=== PATIENT | female | born 1990 | race Two or more races ===

== ENCOUNTER 2024-05-20 18:09 | Emergency (ER) | payer MEDICAID, SELFPAY ==
[2024-05-20 18:30] VITALS: BP 147/87; PULSE 65; RESP 16; TEMP 37.1; O2SAT 99; BMI 29.9
--- NOTE | 2024-05-20 18:31 | PD.EDRME ---
Rapid Medical Screening Exam RME Arrival date/time: 05/20/24 18:09 34 year old female present to ED for c/o of abd pain for 1 day I have greeted and performed a focused initial assessment of this patient. A comprehensive ED assessment and evaluation of the patient, analysis of all test results, and completion of the medical decision making process will be conducted by additional ED providers. Chief Complaint: Abdominal Pain Time Seen by Provider: 05/20/24 18:29 Vital signs: Vital Signs Temperature 98.8 F 05/20/24 18:30 Pulse Rate 65 05/20/24 18:30 Respiratory Rate 16 05/20/24 18:30 Blood Pressure 147/87 H 05/20/24 18:30 Pulse Oximetry (%) 99 05/20/24 18:30 Oxygen Delivery Method Room Air 05/20/24 18:30
[2024-05-20 18:57] LABS: Collection Type, Urine Voided
[2024-05-20 19:10] LABS: Bacteria,Urine Rare; Bilirubin,Urine 1+ (Negative); Blood,Urine Negative (Negative); Clarity,Urine Turbid (Clear/Hazy); Color,Urine Yellow (Lt Yel-Yel); Glucose, Urine Negative (Negative); Ketones,Urine 2+ (Negative); Leukocyte Esterase,Urine Negative (Negative); Nitrite,Urine Negative (Negative); Protein,Urine 1+ (Neg - Trace); RBC,Urine 7 /hpf (0-3); Specific Gravity,Urine 1.033 (1.001-1.035); Squamous Epithelial Cell,Urine 13 /hpf (0-5); WBC,Urine 5 /hpf (0-5)
[2024-05-20 19:40] LABS: HCG,Qualitative Serum Negative
[2024-05-20 19:41] LABS: Basophils % (Auto) 0 % (0-2.5); Eosinophils % (Auto) 0 % (0-10); Hematocrit 39.2 % (36.0-46.0); Hemoglobin 13.1 g/dL (12.0-16.0); Immature Granulocytes % (Auto) 0 % (0-0); Immature Granulocytes Auto 0.02 Thou/mm3 (0.00-0.00); Lymphocytes # (Auto) 1.5 Thou/mm3 (1.0-4.8); Lymphocytes % (Auto) 15 % (10-50); Mean Corpuscular HGB Conc 33.4 g/dl (31.0-37.0); Mean Corpuscular Hemoglobin 27.3 pg (25.0-35.0); Mean Corpuscular Volume 82 fL (80-100); Monocytes # (Auto) 0.4 Thou/mm3 (0.0-0.8); Monocytes % (Auto) 4 % (0-12); Neutrophils % (Auto) 80 % (37-80); Nucleated Red Blood Cell % 0 /100 WBC (0); Platelet Count 375 Thou/mm3 (140-440); RDW Standard Deviation 44.1 fL (36.4-46.3); White Blood Count 9.9 Thou/mm3 (3.6-11.0)
[2024-05-20 19:47] LABS: Alanine Aminotransferase 71 U/L (10-49); Albumin, Serum 4.3 gm/dL (3.5-5.0); Albumin/Globulin Ratio 1.3 (1.2-2.2); Alkaline Phosphatase 93 U/L (46-116); Anion Gap 10 (7-16); Aspartate Amino Transferase 84 U/L (0-34); BUN/Creatinine Ratio 7 Ratio (12-20); Bilirubin,Total 1.7 mg/dL (0.3-1.2); Blood Urea Nitrogen 5 mg/dL (9-23); Calcium 9.5 mg/dL (8.3-10.6); Calcium (Corrected) 9.5 mg/dL (8.5-10.1); Carbon Dioxide 23.8 mMol/L (20.0-31.0); Chloride 103 mMol/L (98-107); Creatinine (Component) 0.7 mg/dL (0.6-1.3); Estimated Creatinine Clearance 111.1 mL/min (>60); Globulin 3.3 gm/dL (2.3-3.5); Glucose 79 mg/dL (74-106); Lipase 41 U/L (12-53); Osmolality,Calculated 270 (275-295); Sodium 137 mMol/L (136-145); Total Protein 7.6 gm/dL (5.7-8.2); eGFR > 60 See Note
--- NOTE | 2024-05-20 19:57 | XR_ITS ---
Examination: Abdomen sonogram, Limited Date and time of exam: May 20, 2024 2135 hrs. Indications: Onset right upper abdominal pain today Technique: Real-time juarez scale transabdominal sonographic images of the upper abdomen obtained. Findings: Multiple gallstones Normal gallbladder wall Normal common bile duct 0.3 cm Pancreatic head 2.4 cm Liver 12.4 cm fatty infiltration no focal liver lesions Normal hepatopedal portal venous flow Patent IVC Impression: Cholelithiasis, negative for cholecystitis
[2024-05-20] MEDS: MG HYD/AL HYD/SIME (Maalox Reg) SUSP 30 ML UDC PO (20:01)
--- NOTE | 2024-05-20 23:11 | PD.EDABDPN ---
ED Abdominal Pain RME/HPI General Chief Complaint: Abdominal Pain Stated complaint: sent by clinic upper ab pain Time seen by provider: 05/20/24 18:29 Arrival date/time: 05/20/24 18:09 34-year-old female with no significant past medical history presents emergency department complaining of epigastric abdominal pain has been ongoing for 1 day. Patient denies any fever, chills, nausea vomiting, or any other associated symptom. Source: patient Mode of arrival: ambulatory Limitations: no limitations RME / HPI RME / HPI narrative: 05/20/24 18:09 34 year old female present to ED for c/o of abd pain for 1 day I have greeted and performed a focused initial assessment of this patient. A comprehensive ED assessment and evaluation of the patient, analysis of all test results, and completion of the medical decision making process will be conducted by additional ED providers. Related Data Home Medications ?Medication ?Instructions ?Recorded ?Confirmed vit no.95-ferrous 1 tab PO QDAY 10/18/17 10/23/17 fumarate 28 mg-folic acid 800 mcg tablet () Previous Rx's ?Medication ?Instructions ?Recorded hydrocodone 5 mg-acetaminophen 325 1 tab PO BID PRN pain #10 tabs 05/20/24 mg tablet Allergies Allergy/AdvReac Type Severity Reaction Status Date / Time No Known Drug Allergies Allergy Verified 05/20/24 18:10 Review of Systems Review of Systems Systems Reviewed: All systems reviewed, normal except as documented Constitutional Constitutional: Reports system reviewed and no additional complaints, except as documented, Denies body ache(s), Denies chills and Denies fever(s) Eyes Eyes: Reports system reviewed and no additional complaints, except as documented and Denies change in vision ENT Ears, Nose, Mouth, and Throat: Reports system reviewed and no additional complaints, except as documented, Denies disequilibrium, Denies dizziness, Denies sore throat and Denies vertigo Cardiovascular Cardiovascular: Reports system reviewed and no additional complaints, except as documented, Denies chest pain and Denies dyspnea Respiratory Respiratory: Reports system reviewed and no additional complaints, except as documented, Denies chest congestion, Denies cough and Denies dyspnea Gastrointestinal Gastrointestinal: Reports system reviewed and no additional complaints, except as documented, Reports abdominal pain, Denies nausea and Denies vomiting Musculoskeletal Musculoskeletal: Reports system reviewed and no additional complaints, except as documented, Denies abnormal gait and Denies arthralgias Integumentary/Breasts Skin/Breast: Reports system reviewed and no additional complaints, except as documented, Denies erythema, Denies rash and Denies wounds Neurologic Neurologic: Reports system reviewed and no additional complaints, except as documented, Denies abnormal gait, Denies disequilibrium, Denies dizziness and Denies vertigo Past Medical History Past Medical History NEUROLOGIC: Negative Neurological Disorders or Seizures CARDIAC: Negative Cardiac Disorders or Congestive Heart Failure RESPIRATORY: Negative Chronic Obstructive Pulmonary Disease (COPD) GASTROINTESTINAL: Negative Gastrointestinal Disorders, Hepatitis or Colorectal Cancer GENITOURINARY: Negative Genitourinary Disorders, Renal Disease or Prostate Cancer REPRODUCTIVE: Positive Previous Pregnancies (x4 including 1 sab); Negative Breast Cancer or Testicular Cancer MUSCULOSKELETAL: Negative Musculoskeletal Disorders or Bone Cancer ENDOCRINE: Negative Endocrine Disorders, Diabetes Mellitus Type 1 or Diabetes Mellitus Type 2 HEMATOLOGIC: Negative Blood Disorders OTHER HISTORY: Positive Hospitalization (childbirth); Negative Autoimmune Disease, Down Syndrome, Developmental Delay, Shingles, Falls, Blood Transfusions, Blood Transfusion Reaction, Anesthesia Reactions, Organ Transplant, Chemotherapy, Radiation Therapy, Hyperbaric Therapy, MRSA, VRSA, Vancomycin-Resistant Enterococci, Human Immunodeficiency Virus (HIV), Chicken Pox, Measles, Mumps, Rubella (Bul[place]ian Measles), Pertussis, Clostridium Difficile, Breast Cancer, Cervical Cancer, Colorectal Cancer, Lung Cancer, Ovarian Cancer, Prostate Cancer or Testicular Cancer Family History FAMILY HISTORY: Negative Family Psychiatric Problems, Family Respiratory Disorders, Family Cardiac Disorders, Family Gastrointestinal Problems, Family Cancer, Family Surgery or Family Anesthesia Reaction Surgical History SURGICAL: Positive Section (x3 2009, 2012, 2013); Negative Cardiac Surgery, Endocrine Surgery, Ear Surgery, Abdominal Surgery, Nephrectomy, Joint Replacement, Neurologic Surgery or Organ Transplant Social History SMOKING STATUS: Never smoker SECOND HAND EXPOSURE: No ED Exam General Limitations: Present no limitations General appearance: Present alert and in no apparent distress Head Head exam: Present atraumatic Eye Eye exam: Present normal appearance, PERRL and EOMI ENT ENT exam: Present normal exam, normal oropharynx and mucous membranes moist Neck Neck exam: Present normal inspection, full ROM and trachea midline Chest Chest inspection: Present normal inspection and symmetric chest wall rise Respiratory Respiratory exam: Present normal lung sounds bilaterally Cardiovascular Cardiovascular exam: Present regular rate, normal rhythm and normal heart sounds Abdominal Exam Abdominal exam: Present soft, tenderness, normal bowel sounds and Verduzco's sign; Absent tenderness at McBurney's Point Abdominal tenderness: Present epigastrium Extremities Exam Extremities exam: Present normal inspection and full ROM Back Exam Back exam: Present normal inspection and full ROM Neurological Exam Neurological exam: Present alert, oriented X3 and CN II-XII intact Psychiatric Psychiatric exam: Present normal affect and normal mood Skin Skin exam: Present warm, dry, intact and normal color Course Quality Measures none Orders Category Date Time Status US abdomen limited Stat Exams 05/20/24 19:57 Completed CBC Stat Lab 05/20/24 18:56 Completed CMP [Comprehensive Metabolic Panel] Stat Lab 05/20/24 18:56 Completed HCG,Qualitative Serum Stat Lab 05/20/24 18:56 Completed Lipase Stat Lab 05/20/24 18:56 Completed UA [Urinalysis] Stat Lab 05/20/24 18:44 Completed Urine Culture Stat Lab 05/20/24 18:44 Received mg Hyd/Al Hyd/Cece Susp [Maalox Susp] Med 05/20/24 19:43 Discontinued 30 ml PO X1 ONE Vital Signs Vital signs: Vital Signs Temperature 98.8 F 05/20/24 18:30 Pulse Rate 65 05/20/24 18:30 Respiratory Rate 16 05/20/24 18:30 Blood Pressure 147/87 H 05/20/24 18:30 Pulse Oximetry (%) 99 05/20/24 18:30 Oxygen Delivery Method Room Air 05/20/24 18:30 99% room air within normal limits. Abdominal Pain MDM MDM Narrative MDM Narrative:: 34-year-old female with no significant past medical history presents emergency department complaining of epigastric abdominal pain has been ongoing for 1 day. Patient denies any fever, chills, nausea vomiting, or any other associated symptom. CBC was unremarkable for any leukocytosis. CMP was unremarkable other than elevated total bili, AST, and ALT. Ultrasound findings: Findings: Multiple gallstones Normal gallbladder wall Normal common bile duct 0.3 cm Pancreatic head 2.4 cm Liver 12.4 cm fatty infiltration no focal liver lesions Normal hepatopedal portal venous flow Patent IVC Impression: Cholelithiasis, negative for cholecystitis Patient appears nontoxic and hemodynamically stable. On exam patient does not appear jaundiced. Patient discharged on pain medication and instructed to have close follow-up with primary care provider and request referral to general surgeon if symptoms persist. Instructed to immediately return to emergency department for any worsening symptoms or as needed. Patient data External records reviewed:: [facility] previous records Clinical information provided by:: patient Social determinants that could affect healthcare access:: none Patient has the following chronic illnesses:: See chart How is presenting disease/condition affected by chronic disease/condition?: uneffected by Evaluation data The following diagnostics were reviewed and interpreted by me:: lab results and radiology exam(s) Lab and/or radiology exams considered but not ordered:: Ordered Interpretation Summary: Interpreted by me Medications / Prescriptions Medications or Prescriptions considered but not ordered:: Ordered Medication administrations:: Medication Administration History Discontinued Medications Al Hydrox/Mg Hydrox/Simethicone (Mg Hyd/Al Hyd/Cece (Maalox Reg) Susp 30 Ml Udc) 30 ml PO X1 ONE Stop: 05/20/24 19:44 Last Admin: 05/20/24 20:01 Dose: 30 ml Documented By: Given Consultations Consultation(s) initiated? (list below): No Diagnosis Differential diagnosis abdominal pain: abdominal pain, acute appendicitis, diverticulitis, pancreatitis and small bowel obstruction Most likely diagnosis given after review of the tests above:: Gallstones Admission Indicated Admission indicated?: not indicated Admission Request Was there a request for admission?: No Disposition Plan Disposition Plan: Discharge Discharge Attestation Discharge Attestation: The patient and all family members were given an opportunity to ask questions and understood the discharge instructions. Discharge instructions specifically effects, indications for sooner follow up or return to the emergency department, and the expected course of current diagnosis. Patient condition: Stable Discharge Plan Plan Patient Disposition: HOME (Self Care) Disposition Comment: Stable Prescriptions/Referrals Prescriptions/Med Rec: New hydrocodone-acetaminophen 5-325 mg tablet 1 tab PO BID MDD 2 tabs PRN (Reason: pain) Qty: 10 0RF No Action PNV cmb#95-ferrous fumarate-FA [] 28 mg iron- 800 mcg Tablet 1 tab PO QDAY Referrals: Herman Urbina MD [Primary Care Provider] - In 1 week Problem List Clinical Impression: Gallstones Patient/Caregiver Discharge Instructions Discharge Activity: activity as tolerated Education Materials: What Are Gallstones, Treating Gallstones, ED Gallstones with Biliary Colic Additional Instructions: Take medication as prescribed. Follow-up with primary care provider and request referral to general surgeon if symptoms persist. Return to the emergency department for any worsening symptoms or as needed. Print Language: Urdu Stand Alone Forms: [employer] Award Info., Work/School Release, Patient Portal Info Letter PA/SKILLS INSTRUCTOR Supervising Physician PA/SKILLS INSTRUCTOR Supervising Physician: Dr. Ferguson
== END 2024-05-21 00:02 | disposition home or self-care (01) ==
PROVIDERS: Physician Assistant; Emergency Provider Emergency Medicine; PCP Family Medicine
DX: K80.20 Calculus of gallbladder without cholecystitis without obstruction (principal)
CPT/HCPCS: 36415; 76705; 80053; 81001; 83690; 84703; 85025; 87086; 99284; A9270

== ENCOUNTER 2024-07-14 01:44 | Emergency (ER) | payer MEDICAID, SELFPAY ==
[2024-07-14 01:45] VITALS: BMI 32.3
[2024-07-14 02:15] VITALS: BP 143/80; PULSE 79; RESP 20; TEMP 36.9; O2SAT 100
--- NOTE | 2024-07-14 02:19 | XR_ITS ---
Examination: Abdomen sonogram, Limited Date and time of exam: July 14, 2024 0330 hrs. Indications: Right upper abdominal pain today, diagnosis cholelithiasis one year ago Technique: Real-time juarez scale transabdominal sonographic images of the upper abdomen obtained. Findings: Multiple tiny gallstones Gallbladder wall 0.2 cm Abnormal enlargement, bile duct 0.8 cm although no definite stones Pancreatic head 2.6 cm Liver 14.6 cm smooth contour no focal liver lesions Normal hepatopedal portal venous flow Patent IVC Impression: Cholelithiasis, multiple tiny gallstones Abnormally enlarged common bile duct 0.8 cm, consider MRCP follow-up to exclude small stones in this enlarged common bile duct
--- NOTE | 2024-07-14 02:24 | PD.EDRME ---
Rapid Medical Screening Exam RME Arrival date/time: 07/14/24 01:44 34 year old female present to Ed for c/o RUQ pain, hx of gallstone I have greeted and performed a focused initial assessment of this patient. A comprehensive ED assessment and evaluation of the patient, analysis of all test results, and completion of the medical decision making process will be conducted by additional ED providers. Chief Complaint: Abdominal Pain Time Seen by Provider: 07/14/24 01:47 Vital signs: Vital Signs Temperature 98.4 F 07/14/24 02:15 Pulse Rate 79 07/14/24 02:15 Respiratory Rate 20 07/14/24 02:15 Blood Pressure 143/80 H 07/14/24 02:15 Pulse Oximetry (%) 100 07/14/24 02:15 Oxygen Delivery Method Room Air 07/14/24 02:15
[2024-07-14] MEDS: KETOROLAC INJ 60 MG/2 ML VIAL 30 MG IM (02:28)
[2024-07-14 02:38] LABS: Basophils % (Auto) 0 % (0-2.5); Eosinophils % (Auto) 0 % (0-10); Hematocrit 35.6 % (36.0-46.0); Hemoglobin 12.1 g/dL (12.0-16.0); Immature Granulocytes % (Auto) 0 % (0-0); Immature Granulocytes Auto 0.04 Thou/mm3 (0.00-0.00); Lymphocytes # (Auto) 2.6 Thou/mm3 (1.0-4.8); Lymphocytes % (Auto) 19 % (10-50); Mean Corpuscular Hemoglobin 28.6 pg (25.0-35.0); Mean Corpuscular Volume 84 fL (80-100); Monocytes # (Auto) 0.8 Thou/mm3 (0.0-0.8); Monocytes % (Auto) 6 % (0-12); Neutrophils # (Auto) 9.8 Thou/mm3 (1.8-7.7); Neutrophils % (Auto) 74 % (37-80); Nucleated Red Blood Cell % 0 /100 WBC (0); Platelet Count 366 Thou/mm3 (140-440); Red Blood Count 4.23 Miln/mm3 (4.00-5.20); White Blood Count 13.2 Thou/mm3 (3.6-11.0)
[2024-07-14 02:58] LABS: Alanine Aminotransferase 53 U/L (10-49); Albumin, Serum 4.4 gm/dL (3.5-5.0); Albumin/Globulin Ratio 1.5 (1.2-2.2); Alkaline Phosphatase 84 U/L (46-116); Anion Gap 9 (7-16); Aspartate Amino Transferase 128 U/L (0-34); BUN/Creatinine Ratio 13 Ratio (12-20); Bilirubin,Total 0.7 mg/dL (0.3-1.2); Blood Urea Nitrogen 9 mg/dL (9-23); Calcium 9.3 mg/dL (8.3-10.6); Calcium (Corrected) 9.3 mg/dL (8.5-10.1); Carbon Dioxide 26.5 mMol/L (20.0-31.0); Chloride 106 mMol/L (98-107); Creatinine (Component) 0.7 mg/dL (0.6-1.3); Estimated Creatinine Clearance 98.2 mL/min (>60); Glucose 108 mg/dL (74-106); HCG,Qualitative Serum Negative; Lipase 55 U/L (12-53); Osmolality,Calculated 280 (275-295); Potassium 3.6 mMol/L (3.4-5.1); Sodium 141 mMol/L (136-145); Total Protein 7.4 gm/dL (5.7-8.2); eGFR > 60 See Note
[2024-07-14 04:45] VITALS: BP 132/87; PULSE 63; RESP 18; TEMP 36.3; O2SAT 100
[2024-07-14 05:14] LABS: Collection Type, Urine Voided; RBC,Urine 0 /hpf (0-3); WBC,Urine 0 /hpf (0-5)
[2024-07-14 05:19] LABS: Bacteria,Urine Rare; Bilirubin,Urine Negative (Negative); Blood,Urine Negative (Negative); Clarity,Urine Turbid (Clear/Hazy); Color,Urine Yellow (Lt Yel-Yel); Glucose, Urine Negative (Negative); Ketones,Urine Negative (Negative); Leukocyte Esterase,Urine Negative (Negative); Nitrite,Urine Negative (Negative); Protein,Urine 1+ (Neg - Trace); Specific Gravity,Urine 1.031 (1.001-1.035); Squamous Epithelial Cell,Urine 3 /hpf (0-5)
[2024-07-14 05:55] VITALS: BP 136/88; PULSE 61; RESP 17; TEMP 36.6; O2SAT 100
--- NOTE | 2024-07-14 06:07 | PC.NURSE ---
patient came in today for right upper abdominal pain that started around midnight patient states pain was 10/10
[2024-07-14] MEDS: SODIUM CHLORIDE 0.9% 1000 ML 1,000 ML 125 ML IV (06:41)
[2024-07-14] MEDS: MORPHINE SULF INJ 10 MG/ML VIAL 4 MG IVP (07:05)
[2024-07-14] MEDS: ONDANSETRON INJ 2 MG/ML INJ 2 ML 4 MG IV (07:05)
--- NOTE | 2024-07-14 07:08 | EDNOTE_ITS ---
ED Abdominal Pain RME/HPI General Chief Complaint: Abdominal Pain Stated complaint: RIGHT UPPER ABD PAIN Time seen by provider: 07/14/24 01:47 Arrival date/time: 07/14/24 01:44 RME / HPI RME / HPI narrative: 07/14/24 01:44 34 year old female present to Ed for c/o RUQ pain, hx of gallstone I have greeted and performed a focused initial assessment of this patient. A comprehensive ED assessment and evaluation of the patient, analysis of all test results, and completion of the medical decision making process will be conducted by additional ED providers. DR. SOFIA ISSA ED EVALUATION: 34 year old female presents to the Emergency Department with complaint of right upper quadrant abdominal pain since midnight today. Pain is described as aching and rated mild to moderate in severity. No modifying factors or radiation reported at this time. Patient denies any fevers, chills, nausea, vomiting, diarrhea, dysuria, or any other symptoms at this time. PMHx: Gallstones. section (10/23/17). Social Hx: No tobacco, alcohol, or substance use. Related Data Home Medications ?Medication ?Instructions ?Recorded ?Confirmed vit no.95-ferrous 1 tab PO QDAY 10/18/17 10/23/17 fumarate 28 mg-folic acid 800 mcg tablet () Previous Rx's ?Medication ?Instructions ?Recorded hydrocodone 5 mg-acetaminophen 325 1 tab PO BID PRN pain #10 tabs 05/20/ mg tablet Allergies Allergy/AdvReac Type Severity Reaction Status Date / Time No Known Drug Allergies Allergy Verified 07/14/24 01:47 Review of Systems Review of Systems Systems Reviewed: All systems reviewed, normal except as documented Narrative Review of Systems: GEN: No fever, no chills, no weight loss EYES: No discharge, no visual changes, no pain HEENT: No ear pain, no congestion, no sore throat PULM: No shortness of breath, no cough, no congestion CV: No chest pain, no dyspnea on exertion, no palpitations GI: No nausea, no vomiting, no diarrhea, + right upper quadrant abdominal pain, no constipation : No frequency, no urgency and no dysuria MUSC/SKEL: No joint pain, no back pain SKIN: No rash PSYCH: No hallucinations, no depression HEME/LYMPH: No easy bleeding or bruising tendencies NEURO: No weakness, no headache Past Medical History Past Medical History NEUROLOGIC: Negative Neurological Disorders or Seizures CARDIAC: Negative Cardiac Disorders or Congestive Heart Failure RESPIRATORY: Negative Respiratory Disorders or Chronic Obstructive Pulmonary Disease (COPD) GASTROINTESTINAL: Negative Gastrointestinal Disorders, Hepatitis or Colorectal Cancer GENITOURINARY: Negative Genitourinary Disorders, Renal Disease or Prostate Cancer REPRODUCTIVE: Positive Previous Pregnancies; Negative Breast Cancer or Testicular Cancer MUSCULOSKELETAL: Negative Musculoskeletal Disorders or Bone Cancer ENDOCRINE: Negative Endocrine Disorders, Diabetes Mellitus Type 1 or Diabetes Mellitus Type 2 HEMATOLOGIC: Negative Blood Disorders OTHER HISTORY: Positive Hospitalization; Negative Autoimmune Disease, Down Syndrome, Developmental Delay, Shingles, Falls, Blood Transfusions, Blood Transfusion Reaction, Anesthesia Reactions, Organ Transplant, Chemotherapy, Radiation Therapy, Hyperbaric Therapy, MRSA, VRSA, Vancomycin-Resistant Enterococci, Human Immunodeficiency Virus (HIV), Chicken Pox, Measles, Mumps, Rubella (Setswana Measles), Pertussis, Clostridium Difficile, Breast Cancer, Cervical Cancer, Colorectal Cancer, Lung Cancer, Ovarian Cancer, Prostate Cancer or Testicular Cancer Family History FAMILY HISTORY: Negative Family Psychiatric Problems, Family Respiratory Disorders, Family Cardiac Disorders, Family Gastrointestinal Problems, Family Cancer, Family Surgery or Family Anesthesia Reaction Surgical History SURGICAL: Positive Section; Negative Cardiac Surgery, Endocrine Surgery, Ear Surgery, Abdominal Surgery, Nephrectomy, Joint Replacement, Neurologic Surgery or Organ Transplant Social History SMOKING STATUS: Never smoker SECOND HAND EXPOSURE: No ED Exam Narrative Physical exam: GENERAL APPEARANCE: Well hydrated, well nourished, in no acute distress. VITALS: All vitals were reviewed and the pulse ox is 100% on room air which is normal according to my interpretation. HEENT: Normocephalic, atramatic, EOMI, EACs are patent. There is no bulge or retraction. Throat without erythema or exudate. Moist oromucosa. No jaundice NECK: Supple, no JVD or bruits. CARDIOVASCULAR: Heart regular without S3-S4 or murmur. No rubs or gallops. LUNGS/CHEST: Clear to auscultation bilaterally. No rales, rhonchi, or wheezing. Normal inspection. ABDOMEN: There is some tenderness on the right upper quadrant area, but no rebound. Normal bowel sounds. No pulsatile masses. No incarcerated hernia. EXTREMITIES: No edema, clubbing, or cyanosis. Intact CSM. Normal inspection and palpation. SKIN: Warm and dry without rashes. Normal inspection. MUSCULOSKELETAL: No gross deformity, full ROM all extremities. Normal ins pection. NEURO: Alert and oriented x3. Cranial nerves II through XII grossly intact. There are no other motor or sensory deficits noted. PSYCHIATRIC: Normal mood and affect. No psychosis. Course Quality Measures none Orders Category Date Time Status MRI Screening NOW Care 07/14/24 06:28 Active NPO NOW Care 07/14/24 06:25 Active Diet NPO (NOW) Diet 07/14/24 06:25 Active MR MRCP Stat Exams 07/14/24 Ordered US abdomen limited Stat Exams 07/14/24 02:19 Completed CBC Stat Lab 07/14/24 02:27 Completed CMP [Comprehensive Metabolic Panel] Stat Lab 07/14/24 02:27 Completed HCG,Qualitative Serum Stat Lab 07/14/24 02:27 Completed Lipase Stat Lab 07/14/24 02:27 Completed UA [Urinalysis] Stat Lab 07/14/24 04:42 Completed Ketorolac Inj [Toradol Inj] Med 07/14/24 02:19 Discontinued 30 mg IM X1 ONE Morphine Inj Med 07/14/24 06:25 Active 4 mg IVP Q4HR PRN Ondansetron Inj [Zofran Inj] Med 07/14/24 06:25 Active 4 mg IV Q4H PRN Sodium Chloride 0.9% 1000 ml [Ns] 1,000 ml Med 07/14/24 06:25 Active IV 125 mls/hr Vital Signs Vital signs: Vital Signs Temperature 98.4 F 07/14/24 02:15 Pulse Rate 79 07/14/24 02:15 Respiratory Rate 20 07/14/24 02:15 Blood Pressure 143/80 H 07/14/24 02:15 Pulse Oximetry (%) 100 07/14/24 02:15 Oxygen Delivery Method Room Air 07/14/24 02:15 Abdominal Pain MDM MDM Narrative MDM Narrative:: I, Pamela Tyler, am scribing for and in the presence of Dr. Jenkins. WBC count of 13,000. However there is no fever. CMP and lipase are negative. Transaminases slightly elevated. Almost the same as before. hCG is negative. Total bilirubin is negative. UA is negative. Ultrasound resulted and was inserted below. It shows a dilated common bile duct. We are planning for an MRCP today. But according to the hospital there is no MRCP availability today. The patient is stable enough to go home and return tomorrow for MRCP. She is aware and is agreeable. Patient data External records reviewed:: [facility] previous records (Reviewed last ED visit dated 05/20/24, discharged with the following: Gallstones) Clinical information provided by:: patient Social determinants that could affect healthcare access:: none Patient has the following chronic illnesses:: Gallstones. section (10/23/17). How is presenting disease/condition affected by chronic disease/condition?: caused by Evaluation data The following diagnostics were reviewed and interpreted by me:: lab results and radiology exam(s) Lab and/or radiology exams considered but not ordered:: none Interpretation Summary: Procedure(s): US abdomen limited Accession Number(s): [id number] cc: Herman Urbina MD; Vance Holguin MD; Abel Jenkins PA-C~ Examination: Abdomen sonogram, Limited Date and time of exam: July 14, 2024 0330 hrs. Indications: Right upper abdominal pain today, diagnosis cholelithiasis one year ago Technique: Real-time juarez scale transabdominal sonographic images of the upper abdomen obtained. Findings: Multiple tiny gallstones Gallbladder wall 0.2 cm Abnormal enlargement, bile duct 0.8 cm although no definite stones Pancreatic head 2.6 cm Liver 14.6 cm smooth contour no focal liver lesions Normal hepatopedal portal venous flow Patent IVC Impression: Cholelithiasis, multiple tiny gallstones Abnormally enlarged common bile duct 0.8 cm, consider MRCP follow-up to exclude small stones in this enlarged common bile duct Dictated By: Vance Holguin MD Medications / Prescriptions Medications or Prescriptions considered but not ordered:: none Medication administrations:: Medication Administration History Sodium Chloride (Ns) 1,000 mls @ 125 mls/hr IV .Q8H ONE Stop: 07/14/24 14:24 Last Admin: 07/14/24 06:41 Dose: 125 mls/hr Documented By: EF Morphine Sulfate (Morphine Sulf Inj 10 Mg/Ml Vial) 4 mg IVP Q4HR PRN PRN Reason: PAIN Last Admin: 07/14/24 07:05 Dose: 4 mg Documented By: VG Ondansetron HCl (Ondansetron Inj 2 Mg/Ml Inj 2 Ml) 4 mg IV Q4H PRN; Protocol PRN Reason: NAUSEA OR VOMITING Stop: 08/13/24 06:24 Last Admin: 07/14/24 07:05 Dose: 4 mg Documented By: VG Discontinued Medications Ketorolac Tromethamine (Ketorolac Inj 60 Mg/2 Ml Vial) 30 mg IM X1 ONE Stop: 07/14/24 02:20 Last Admin: 07/14/24 02:28 Dose: 30 mg Documented By: CVL see above Consultations Consultation(s) initiated? (list below): No Diagnosis Differential diagnosis abdominal pain: abdominal pain, gastroenteritis, pancreatitis and other (Cholelithiasis. Choledocholithiasis) Most likely diagnosis given after review of the tests above:: Cholelithiasis. Common bile duct dilatation. Admission Indicated Admission indicated?: not indicated Admission Request Was there a request for admission?: No Disposition Plan Disposition Plan: Discharge (To return tomorrow for MRCP.) Discharge Attestation Discharge Attestation: The patient and all family members were given an opportunity to ask questions and understood the discharge instructions. Discharge instructions specifically effects, indications for sooner follow up or return to the emergency department, and the expected course of current diagnosis. Patient condition: Stable Discharge Plan Plan Patient Disposition: HOME (Self Care) Disposition Comment: Stable to go home Prescriptions/Referrals Prescriptions/Med Rec: No Action PNV cmb#95-ferrous fumarate-FA [] 28 mg iron- 800 mcg Tablet 1 tab PO QDAY hydrocodone-acetaminophen 5-325 mg tablet 1 tab PO BID MDD 2 tabs PRN (Reason: pain) Qty: 10 0RF Referrals: Herman Urbina MD [Primary Care Provider] - In 1 week Problem List Clinical Impression: Abdominal pain, Cholelithiasis, Common bile duct dilatation Patient/Caregiver Discharge Instructions Education Materials: What Are Gallstones Additional Instructions: Clear liquid diet for now. Return to the emergency department tomorrow morning around 8:00 for recheck further care and MRCP. We do not have MRCP availability today. Print Language: Anguillan Stand Alone Forms: [employer] Award Info., Patient Portal Info Letter
--- NOTE | 2024-07-14 07:15 | PC.NURSE ---
In to assess pt. Pt resting quietly at this time with c/o RUQ abd pain and nausea. Pt without further complaints at this time. Orders received and initiated, call light placed within reach, pillow provided, plan of care ongoing.
[2024-07-14 07:46] VITALS: BP 120/69; PULSE 69; RESP 18; TEMP 37; O2SAT 100
[2024-07-14 09:46] VITALS: BP 123/78; PULSE 62; RESP 18; TEMP 36.8; O2SAT 100
[2024-07-14 11:42] VITALS: BP 117/84; PULSE 60; RESP 18; TEMP 36.9; O2SAT 100
== END 2024-07-14 11:45 | disposition home or self-care (01) ==
PROVIDERS: Physician Assistant; Emergency Provider Emergency Medicine; PCP Family Medicine
DX: K80.20 Calculus of gallbladder without cholecystitis without obstruction (principal)
CPT/HCPCS: 36415; 76705; 80053; 81001; 83690; 84703; 85025; 96372; 96374; 96375; 99284; J1885; J2270; J2405; J7030

== ENCOUNTER 2024-07-14 21:17 | Emergency (ER) | payer MEDICAID, SELFPAY ==
[2024-07-14 21:18] VITALS: BMI 32.3
[2024-07-14 22:09] VITALS: BP 142/84; PULSE 60; RESP 16; TEMP 36.9; O2SAT 100
--- NOTE | 2024-07-14 22:42 | EDNOTE_ITS ---
ED Abdominal Pain RME/HPI General Chief Complaint: Abdominal Pain Stated complaint: ABD PAIN /RADIATES TO BACK Time seen by provider: 07/14/24 21:53 Arrival date/time: 07/14/24 21:17 This is a 34-year-old female that comes in with complaint of abdominal pain. Patient was seen here earlier today and diagnosed with gallstones. Patient's LFTs were elevated along with lipase slightly elevated. Patient's ultrasound showed gallstones and enlarged common bile duct. Patient was told to come back tomorrow morning at 8 AM for an MRCP. MRCP was not available today but will be available tomorrow morning. Patient does not want to wait in the emergency room all night for the MRCP and states she will come back tomorrow as already discussed. Limitations: no limitations Related Data Home Medications ?Medication ?Instructions ?Recorded ?Confirmed vit no.95-ferrous 1 tab PO QDAY 10/18/17 10/23/17 fumarate 28 mg-folic acid 800 mcg tablet () Previous Rx's ?Medication ?Instructions ?Recorded hydrocodone 5 mg-acetaminophen 325 1 tab PO BID PRN pain #10 tabs 05/20/ mg tablet Allergies Allergy/AdvReac Type Severity Reaction Status Date / Time No Known Drug Allergies Allergy Verified 07/15/24 07:56 Review of Systems Review of Systems Systems Reviewed: All systems reviewed, normal except as documented Past Medical History Past Medical History REPRODUCTIVE: Positive Previous Pregnancies OTHER HISTORY: Positive Hospitalization Surgical History SURGICAL: Positive Section Social History SMOKING STATUS: Never smoker SECOND HAND EXPOSURE: No ED Exam General Limitations: Present no limitations General appearance: Present alert and in no apparent distress Head Head exam: Present atraumatic Eye Eye exam: Present normal appearance, PERRL and EOMI ENT ENT exam: Present normal exam, normal oropharynx and mucous membranes moist Neck Neck exam: Present normal inspection, full ROM and trachea midline Chest Chest inspection: Present normal inspection and symmetric chest wall rise Respiratory Respiratory exam: Present normal lung sounds bilaterally Cardiovascular Cardiovascular exam: Present regular rate, normal rhythm and normal heart sounds Abdominal Exam Abdominal exam: Present soft and other (Pain to epigastric area. No pain to mild palpation) Extremities Exam Extremities exam: Present normal inspection and full ROM Back Exam Back exam: Present normal inspection and full ROM Neurological Exam Neurological exam: Present alert, oriented X3 and CN II-XII intact Psychiatric Psychiatric exam: Present normal affect and normal mood Skin Skin exam: Present warm, dry, intact and normal color Course Quality Measures none Orders Category Date Time Status HYDROmorphone INJ [Dilaudid Inj] Med 07/14/24 22:42 Discontinued 1 mg IM X1 ONE Metoclopramide Inj [Reglan Inj] Med 07/14/24 22:42 Discontinued 10 mg IM X1 ONE Vital Signs Vital signs: Vital Signs Temperature 98.4 F 07/14/24 22:09 Pulse Rate 60 07/14/24 22:09 Respiratory Rate 16 07/14/24 22:09 Blood Pressure 142/84 H 07/14/24 22:09 Pulse Oximetry (%) 100 07/14/24 22:09 Oxygen Delivery Method Room Air 07/14/24 22:09 Abdominal Pain MDM MDM Narrative MDM Narrative:: This is a 34-year-old female that comes in with complaint of abdominal pain. Patient was seen here earlier today and diagnosed with gallstones. Patient's LFTs were elevated along with lipase slightly elevated. Patient's ultrasound showed gallstones and enlarged common bile duct. Patient was told to come back tomorrow morning at 8 AM for an MRCP. MRCP was not available today but will be available tomorrow morning. Patient does not want to wait in the emergency room all night for the MRCP and states she will come back tomorrow as already discussed. Patient agreed to come back to the emergency room for [place] in the morning to get MRCP done. Patient told to come back to the emergency room if symptoms ch cristy or worsen. Patient comfortable with plan of care. Patient was given pain medication and felt better. Patient comfortable going home at this time. Patient data External records reviewed:: [facility] previous records Clinical information provided by:: patient Social determinants that could affect healthcare access:: none Patient has the following chronic illnesses:: None How is presenting disease/condition affected by chronic disease/condition?: no chronic disease Evaluation data The following diagnostics were reviewed and interpreted by me:: other (specify) (None patient had previously labs) Lab and/or radiology exams considered but not ordered:: None Interpretation Summary: Previous labs from earlier today. Medications / Prescriptions Medications or Prescriptions considered but not ordered:: None Medication administrations:: Medication Administration History Discontinued Medications Hydromorphone HCl (Hydromorphone Inj 2 Mg/Ml Vial) 1 mg IM X1 ONE Stop: 07/14/24 22:43 Last Admin: 07/14/24 22:59 Dose: 1 mg Documented By: SCARLET Metoclopramide HCl (Metoclopramide Inj 5 Mg/Ml Vial 2 Ml) 10 mg IM X1 ONE; Protocol Stop: 07/14/24 22:43 Last Admin: 07/14/24 23:00 Dose: 10 mg Documented By: SCARLET See MAR Consultations Consultation(s) initiated? (list below): No Diagnosis Differential diagnosis abdominal pain: abdominal pain and pancreatitis (Gallstone pancreatitis choledocho cholecystitis) Most likely diagnosis given after review of the tests above:: Gallstones Admission Indicated Admission indicated?: not indicated Admission Request Was there a request for admission?: No Disposition Plan Disposition Plan: Discharge Discharge Attestation Discharge Attestation: The patient and all family members were given an opportunity to ask questions and understood the discharge instructions. Discharge instructions specifically effects, indications for sooner follow up or return to the emergency department, and the expected course of current diagnosis. Patient condition: Stable Discharge Plan Plan Patient Disposition: HOME (Self Care) Patient condition on transfer: Stable Prescriptions/Referrals Prescriptions/Med Rec: No Action PNV cmb#95-ferrous fumarate-FA [] 28 mg iron- 800 mcg Tablet 1 tab PO QDAY hydrocodone-acetaminophen 5-325 mg tablet 1 tab PO BID MDD 2 tabs PRN (Reason: pain) Qty: 10 0RF Referrals: Temporary Provider,ED [Physician] - In 1 week Problem List Clinical Impression: Gallstones, Abdominal pain Patient/Caregiver Discharge Instructions Discharge Activity: activity as tolerated Education Materials: Abdominal Pain, Treating Gallstones Additional Instructions: Come back to the emergency room at 8 AM for MRCP as instructed previously. Come back to the emergency room if symptoms change or worsen. Print Language: Panamanian Stand Alone Forms: Clar[employer] Award Info., Patient Portal Info Letter PA/DIANNA Supervising Physician JUSTICE/DIANNA Supervising Physician: iganna
[2024-07-14] MEDS: HYDROmorphone INJ 2 MG/ML VIAL 1 MG IM (22:59)
[2024-07-14] MEDS: METOCLOPRAMIDE INJ 5 MG/ML VIAL 2 ML 10 MG IM (23:00)
--- NOTE | 2024-07-14 23:00 | PC.NURSE ---
patient mother is present in ER. will drive patient home. per patient, she will not drive herself home.
== END 2024-07-14 23:05 | disposition home or self-care (01) ==
PROVIDERS: Emergency Provider Emergency Medicine
DX: K80.20 Calculus of gallbladder without cholecystitis without obstruction (principal)
CPT/HCPCS: 96372; 99284; J2765; J3490

== ENCOUNTER 2024-07-15 07:54 | Emergency (ER) | payer MEDICAID, SELFPAY ==
--- NOTE | 2024-07-15 | XR_ITS ---
MRI abdomen, without contrast. MRCP Date and time of exam: July 15, 2024 at 1448 hours INDICATIONS: Elevated liver function tests and elevated lipase on examination yesterday, enlarged common bile duct 8 mm on abdomen sonogram July 14, 2024 Technique: Multiple axial and coronal images of the abdomen have been obtained with the Siemens 1.5T MRI scanner. Images obtained included T1 weighted transverse images, T2-weighted transverse images, T2-weighted transverse images fat-suppressed, T2 weighted haste fat suppressed transverse images, T1 weighted images, in and out of phase images, T2-weighted coronal images, breath hold, T2 weighted haze coronal images as well as T2 weighted coronal thick slab images, MRCP. Findings: No focal liver lesions Numerous small gallstones Common hepatic duct 4 mm No common hepatic or common bile duct stones No pericholecystic edema Negative for pancreatitis No ascites IMPRESSION: Cholelithiasis, negative for cholecystitis Negative for common hepatic or common bile duct stones Negative for pancreatitis
[2024-07-15 08:02] VITALS: BP 108/73; PULSE 74; RESP 18; TEMP 36.8; O2SAT 100; BMI 32.5
--- NOTE | 2024-07-15 08:13 | PD.EDRME ---
Rapid Medical Screening Exam RME Arrival date/time: 07/15/24 07:54 34-year-old female here for MRCP. History of gallstones elevated LFTs and mild lipase returns as instructed for MRCP. Chief Complaint: Abdominal Pain Time Seen by Provider: 07/15/24 07:58 Vital signs: Vital Signs Temperature 98.2 F 07/15/24 08:02 Pulse Rate 74 07/15/24 08:02 Respiratory Rate 18 07/15/24 08:02 Blood Pressure 108/73 07/15/24 08:02 Pulse Oximetry (%) 100 07/15/24 08:02 Oxygen Delivery Method Room Air 07/15/24 08:02
[2024-07-15 09:43] LABS: Basophils % (Auto) 0 % (0-2.5); Eosinophils % (Auto) 0 % (0-10); Hematocrit 36.9 % (36.0-46.0); Immature Granulocytes % (Auto) 0 % (0-0); Immature Granulocytes Auto 0.01 Thou/mm3 (0.00-0.00); Lymphocytes # (Auto) 1.2 Thou/mm3 (1.0-4.8); Lymphocytes % (Auto) 15 % (10-50); Mean Corpuscular HGB Conc 32.5 g/dl (31.0-37.0); Mean Corpuscular Hemoglobin 28.2 pg (25.0-35.0); Mean Corpuscular Volume 87 fL (80-100); Monocytes # (Auto) 0.4 Thou/mm3 (0.0-0.8); Monocytes % (Auto) 5 % (0-12); Neutrophils # (Auto) 6.6 Thou/mm3 (1.8-7.7); Neutrophils % (Auto) 80 % (37-80); Nucleated Red Blood Cell % 0 /100 WBC (0); Platelet Count 357 Thou/mm3 (140-440); RDW Standard Deviation 44.7 fL (36.4-46.3); Red Blood Count 4.25 Miln/mm3 (4.00-5.20); White Blood Count 8.3 Thou/mm3 (3.6-11.0)
[2024-07-15 10:00] LABS: HCG,Qualitative Serum Negative
[2024-07-15 10:05] LABS: Alanine Aminotransferase 346 U/L (10-49); Albumin/Globulin Ratio 1.3 (1.2-2.2); Alkaline Phosphatase 144 U/L (46-116); Anion Gap 7 (7-16); Aspartate Amino Transferase 309 U/L (0-34); BUN/Creatinine Ratio 13 Ratio (12-20); Bilirubin,Total 1.3 mg/dL (0.3-1.2); Blood Urea Nitrogen 10 mg/dL (9-23); Calcium 9.1 mg/dL (8.3-10.6); Calcium (Corrected) 9.1 mg/dL (8.5-10.1); Chloride 109 mMol/L (98-107); Creatinine (Component) 0.8 mg/dL (0.6-1.3); Estimated Creatinine Clearance 86.3 mL/min (>60); Glucose 91 mg/dL (74-106); Lipase 54 U/L (12-53); Osmolality,Calculated 283 (275-295); Potassium 4.2 mMol/L (3.4-5.1); Sodium 143 mMol/L (136-145); eGFR > 60 See Note
[2024-07-15 14:08] VITALS: BP 126/87; PULSE 65; RESP 16; TEMP 36.8; O2SAT 98
--- NOTE | 2024-07-15 15:44 | EDNOTE_ITS ---
ED Abdominal Pain RME/HPI General Chief Complaint: Abdominal Pain Stated complaint: NEEDS MRCP Time seen by provider: 07/15/24 07:58 Arrival date/time: 07/15/24 07:54 RME / HPI RME / HPI narrative: 07/15/24 07:54 34-year-old female here for MRCP. History of gallstones elevated LFTs and mild lipase returns as instructed for MRCP. DR. BLACK MAIN ED EVALUATION 34 year old female presents to the ED for reassessment today. Patient reports she was evaluated here yesterday for abdominal pain and had an ultrasound performed showing multiple tiny gallstones and enlarged CBD. Per EMR review, the liver enzymes were elevated and was instructed to return today for MRCP. No new symptoms or complaints reported. Denies fevers. Related Data Home Medications ?Medication ?Instructions ?Recorded ?Confirmed vit no.95-ferrous 1 tab PO QDAY 10/18/17 10/23/17 fumarate 28 mg-folic acid 800 mcg tablet () Previous Rx's ?Medication ?Instructions ?Recorded hydrocodone 5 mg-acetaminophen 325 1 tab PO BID PRN pain #10 tabs 05/20/ mg tablet Allergies Allergy/AdvReac Type Severity Reaction Status Date / Time No Known Drug Allergies Allergy Verified 07/15/24 07:56 Review of Systems Review of Systems Narrative Review of Systems: GEN: No fever, no chills, no weight loss EYES: No discharge, no visual changes, no pain HEENT: No ear pain, no congestion, no sore throat PULM: No shortness of breath, no cough, no congestion CV: No chest pain, no palpitations GI: No nausea, no vomiting, no diarrhea, +mild pain, no constipation : No frequency, no urgency and no dysuria MUSC/SKEL No joint pain, no back pain SKIN: No rash NEURO: No weakness, no headache Past Medical History Past Medical History REPRODUCTIVE: Positive Previous Pregnancies OTHER HISTORY: Positive Hospitalization Surgical History SURGICAL: Positive Section Social History SMOKING STATUS: Never smoker SECOND HAND EXPOSURE: No ED Exam Narrative Physical exam: GENERAL APPEARANCE: Well hydrated, well nourished, in no acute distress. VITALS: All vitals were reviewed and the pulse ox is 98% on room air which is normal according to my interpretation. HEENT: Normocephalic, atramatic, EOMI, EACs are patent. There is no bulge or retraction. Throat without erythema or exudate. Moist oromucosa. No jaundice NECK: Supple, no JVD or bruits. CARDIOVASCULAR: Heart regular without S3-S4 or murmur. No rubs or gallops. LUNGS/CHEST: Clear to auscultation bilaterally. No rales, rhonchi, or wheezing. Normal inspection. ABDOMEN: Soft, minimal discomfort in the right upper quadrant, no guarding, no rebound, negative cali's, normal bowel sounds. No pulsatile masses. No rigidity. No incarcerated hernia. EXTREMITIES: Normal inspection and palpation. No edema, clubbing, or cyanosis. Intact CSM SKIN: Warm and dry without rashes. Normal inspection. MUSCULOSKELETAL: Normal inspection. No gross deformity, full ROM all extremities NEURO: Alert and oriented x3. Cranial nerves II through XII grossly intact. There are no other motor or sensory deficits noted. PSYCHIATRIC: Normal mood and affect. No psychosis Course Quality Measures none Orders Category Date Time Status MRI Screening NOW Care 07/15/24 08:12 Active MR MRCP Stat Exams 07/15/24 Completed CBC Stat Lab 07/15/24 09:24 Completed CMP [Comprehensive Metabolic Panel] Stat Lab 07/15/24 09:24 Completed HCG,Qualitative Serum Stat Lab 07/15/24 09:24 Completed Lipase Stat Lab 07/15/24 09:24 Completed Sodium Chloride 0.9% 1000 ml [Ns] 1,000 ml Med 07/15/24 15:50 Discontinued IV 125 mls/hr Vital Signs Vital signs: Vital Signs Temperature 98.2 F 07/15/24 08:02 Pulse Rate 74 07/15/24 08:02 Respiratory Rate 18 07/15/24 08:02 Blood Pressure 108/73 07/15/24 08:02 Pulse Oximetry (%) 100 07/15/24 08:02 Oxygen Delivery Method Room Air 07/15/24 08:02 Abdominal Pain MDM MDM Narrative MDM Narrative:: I, Marcy Queen, am scribing for and in the presence of Dr. Black. CBC is negative. CMP and lipase are negative. hCG is negative. Liver enzymes appear to be elevated more than yesterday. With a total bilirubin of 1.7. Urinalysis from yesterday was negative. MRCP was done and result is posted below. I spoke to Dr. Saez, carbon sequestration plant engineer. He is not on-call. But his opinion is that the patient does not need an ERCP. I spoke to and discussed with Dr. Anthony Lott, surgeon on-call. He was here in the emergency department to evaluate the patient. He said the patient can be discharged home and follow-up with him tomorrow at 3 PM at [facility]. The patient is aware and is agreeable. There is no surgical abdomen at this time. Patient data External records reviewed:: [facility] previous records (I reviewed ED visit from yesterday 07/14/2024) Clinical information provided by:: patient Social determinants that could affect healthcare access:: none Patient has the following chronic illnesses:: No chronic medical hx reported How is presenting disease/condition affected by chronic disease/condition?: no chronic disease Evaluation data The following diagnostics were reviewed and interpreted by me:: lab results and radiology exam(s) Lab and/or radiology exams considered but not ordered:: None Interpretation Summary: Ordering Physician: Ivon Guerra Date of Service: 07/15/24 Procedure(s): MR MRCP Accession Number(s): [id number] cc: Herman Urbina MD; Vance Holguin MD; Ivon Guerra~ MRI abdomen, without contrast. MRCP Date and time of exam: July 15, 2024 at 1448 hours INDICATIONS: Elevated liver function tests and elevated lipase on examination yesterday, enlarged common bile duct 8 mm on abdomen sonogram July 14, 2024 Technique: Multiple axial and coronal images of the abdomen have been obtained with the Siemens 1.5T MRI scanner. Images obtained included T1 weighted transverse images, T2-weighted transverse images, T2-weighted transverse images fat-suppressed, T2 weighted haste fat suppressed transverse images, T1 weighted images, in and out of phase images, T2-weighted coronal images, breath hold, T2 weighted haze coronal images as well as T2 weighted coronal thick slab images, MRCP. Findings: No focal liver lesions Numerous small gallstones Common hepatic duct 4 mm No common hepatic or common bile duct stones No pericholecystic edema Negative for pancreatitis No ascites IMPRESSION: Cholelithiasis, negative for cholecystitis Negative for common hepatic or common bile duct stones Negative for pancreatitis Dictated By: Vance Holguin MD Signed By: <Electronically signed by Vance Holguin MD in OV> 07/15/24 1528 Medications / Prescriptions Medications or Prescriptions considered but not ordered:: None Medication administrations:: Medication Administration History Discontinued Medications Sodium Chloride (Ns) 1,000 mls @ 125 mls/hr IV .Q8H ONE Stop: 07/15/24 23:49 None Consultations Consultation(s) initiated? (list below): Yes Consultation #1 (Physician, Specialty, Details): I spoke with surgeon Dr. Cruz. Discussed patients PMHx, HPI, ED course, exam findings, labs, and radiology results as noted above. Time: 15:45 Consultation #2 (Physician, Specialty, Details): I spoke with GI Dr. Saez. Discussed patients PMHx, HPI, ED course, exam findings, labs, and radiology results as noted above. Time: 15:52 Consultation #3 (Physician, Specialty, Details): Surgeon Dr. Cruz has evaluated the patient in the ED and stated he will follow up with patient on an outpatient basis. Time: 16:10 Diagnosis Differential diagnosis abdominal pain: abdominal pain, acute appendicitis, calculus of kidney, constipation and gastroenteritis Most likely diagnosis given after review of the tests above:: Cholelithiasis Elevated liver enzymes Admission Indicated Admission indicated?: not indicated Admission Request Was there a request for admission?: No Disposition Plan Disposition Plan: Discharge Discharge Attestation Discharge Attestation: The patient and all family members were given an opportunity to ask questions and understood the discharge instructions. Discharge instructions specifically effects, indications for sooner follow up or return to the emergency department, and the expected course of current diagnosis. Patient condition: Stable Discharge Plan Plan Patient Disposition: HOME (Self Care) Disposition Comment: Stable for DC home Prescriptions/Referrals Prescriptions/Med Rec: No Action PNV cmb#95-ferrous fumarate-FA [] 28 mg iron- 800 mcg Tablet 1 tab PO QDAY hydrocodone-acetaminophen 5-325 mg tablet 1 tab PO BID MDD 2 tabs PRN (Reason: pain) Qty: 10 0RF Referrals: Herman Urbina MD [Primary Care Provider] - In 1 week Problem List Clinical Impression: Abdominal pain, Gallstones, Elevated liver enzymes Patient/Caregiver Discharge Instructions Education Materials: What Are Gallstones Additional Instructions: You have gallstones. Your liver enzymes are also elevated. With a total bilirubin 1.7. Normal is about 1. Please see Dr. Lott, general surgeon at [facility] tomorrow at [address] Lott was the one who saw you here in the emergency department. Return to emergency department if condition worsens or if new symptoms develop especially fever or if skin and eye turning yellow Print Language: Kazakh Stand Alone Forms: Clar[employer] Award Info., Patient Portal Info Letter
--- NOTE | 2024-07-15 21:14 | ESCONSULT_ITS ---
RE: PARKER COOK : 1990 DATE OF CONSULTATION: 07/15/2024 HISTORY OF PRESENT ILLNESS: This patient is a 34-year-old female who was seen on consultation at the request of the ER physician because of gallstones and elevated liver enzymes. The patient was in her usual health until a couple of days ago when she started having pain in the epigastric region. She came to the emergency room last night because she was vomiting and was having severe pain. Workup revealed gallstones and mildly elevated liver enzymes. She was discharged and advised to come back for an MRCP this morning. She came to get the MRCP, but her pain is gone. She no longer has the pain. She did notice that her urine was dark. The patient's past medical history revealed that she has had a similar pain in 04/2024 for which she underwent evaluation in the emergency room. She was also found to have gallstones and elevated liver enzymes at that time, but for some reason, subsequently, she was not followed up. She also went to the emergency room in [place] who told her that she had small gallstones, but does not require surgery because they were too small. The patient's other past medical history is essentially unremarkable. Her present history also revealed that she had lost about 50 pounds by taking Wegovy. She used to weigh about 210 pounds and at the present time, she is weighing 160 pounds. PHYSICAL EXAMINATION: GENERAL: Young female who appeared to be in his stated age. Examination of all the systems were normal. ABDOMEN: Examination of the abdomen showed slight tenderness upon deep palpation in the right upper quadrant. Her Verduzco sign was negative, but the deep palpation resulted in some pain. Bowel sounds were normoactive. EXTREMITIES: Lower extremities were normal. LABORATORY DATA: I reviewed the laboratory workup, which is normal today. Yesterday, she had a mild leukocytosis, but now it has come down to normal WBC. However, her liver enzymes are in the range of 300 for transaminases and the bilirubin is up to 1.7, which was normal yesterday. The patient had ultrasound, which revealed small gallstones. The patient had an MRCP, which failed to show any common stone or common hepatic stones. IMPRESSION: Recurrent abdominal pain, probably secondary to cholelithiasis. COURSE OF ACTION: Even though the patient has small stones, she still has need for surgery because the risk of common bile duck stone and pancreatitis is high and therefore, I advised to have the surgery done. At the present time, consolidation was made with the termite exterminator who does not want to perform an ERCP. Since her symptoms are better, I also feel that the patient may get better on its own. I told her about the need for definitive cholecystectomy. She will be seen in my clinic at [facility] on 07/16/2024, which will be tomorrow. I will then proceed with cholecystectomy if the liver enzymes come down to normal. This was explained to Dr. Jenkins who was initiating the consult. The patient is agreeable. DT: 18:38:52 TT: 19:31:00 Ref: [id number] - TID: [id number] MTDD
== END 2024-07-15 17:29 | disposition home or self-care (01) ==
PROVIDERS: Nurse Practitioner Primary Care; Emergency Provider Emergency Medicine; PCP Family Medicine
DX: K80.20 Calculus of gallbladder without cholecystitis without obstruction (principal); R74.8 Abnormal levels of other serum enzymes
CPT/HCPCS: 36415; 80053; 80074; 83690; 84703; 85025; 99284; S8037; 74181

== ENCOUNTER 2024-07-26 06:05 | Day surgery (SDC) | payer MEDICAID, SELFPAY ==
[2024-07-25 10:00] VITALS: BMI 31.6
[2024-07-25 11:37] LABS: Basophils % (Auto) 0 % (0-2.5); Eosinophils % (Auto) 0 % (0-10); Hemoglobin 12.7 g/dL (12.0-16.0); Immature Granulocytes % (Auto) 0 % (0-0); Immature Granulocytes Auto 0.02 Thou/mm3 (0.00-0.00); Lymphocytes % (Auto) 28 % (10-50); Mean Corpuscular HGB Conc 32.6 g/dl (31.0-37.0); Mean Corpuscular Hemoglobin 28.3 pg (25.0-35.0); Mean Corpuscular Volume 87 fL (80-100); Monocytes # (Auto) 0.4 Thou/mm3 (0.0-0.8); Monocytes % (Auto) 6 % (0-12); Neutrophils # (Auto) 4.7 Thou/mm3 (1.8-7.7); Neutrophils % (Auto) 65 % (37-80); Nucleated Red Blood Cell % 0 /100 WBC (0); Platelet Count 408 Thou/mm3 (140-440); RDW Standard Deviation 43.3 fL (36.4-46.3); Red Blood Count 4.48 Miln/mm3 (4.00-5.20); White Blood Count 7.2 Thou/mm3 (3.6-11.0)
[2024-07-25 11:45] LABS: Alanine Aminotransferase 28 U/L (10-49); Albumin, Serum 4.2 gm/dL (3.5-5.0); Albumin/Globulin Ratio 1.4 (1.2-2.2); Alkaline Phosphatase 80 U/L (46-116); Anion Gap 8 (7-16); Aspartate Amino Transferase 21 U/L (0-34); BUN/Creatinine Ratio 12 Ratio (12-20); Bilirubin,Total 0.5 mg/dL (0.3-1.2); Blood Urea Nitrogen 7 mg/dL (9-23); Calcium 9.1 mg/dL (8.3-10.6); Calcium (Corrected) 9.1 mg/dL (8.5-10.1); Carbon Dioxide 26.5 mMol/L (20.0-31.0); Chloride 108 mMol/L (98-107); Creatinine (Component) 0.6 mg/dL (0.6-1.3); Estimated Creatinine Clearance 113.4 mL/min (>60); Glucose 80 mg/dL (74-106); Osmolality,Calculated 280 (275-295); Potassium 4.4 mMol/L (3.4-5.1); Sodium 142 mMol/L (136-145); Total Protein 7.2 gm/dL (5.7-8.2); eGFR > 60 See Note
[2024-07-25 11:54] LABS: INR 1.1 (0.9-1.3); Partial Thromboplastin Time 26.4 Seconds (22.0-36.0); Prothrombin Time 11.7 Seconds (9.0-12.2)
[2024-07-26] VITALS (7 sets, daily range): BP systolic 119–140; BP diastolic 73–92; PULSE 62–83; RESP 15–19; TEMP 36.3–36.6; O2SAT 100; BMI 31.5
[2024-07-26] MEDS: RINGERS LACTATED 1000 ML 1,000 ML 20 ML IV (08:13)
--- NOTE | 2024-07-26 09:57 | SUR.PHASEI ---
pt received from OR in recovery bay 7. pt asleep but responds to voice, breahting unlabored on room air. v/s stable. pt dressing to abd x4 cdi. report received from Naomie VIDAL and Dr. Ambrose.
--- NOTE | 2024-07-26 09:58 | PD.SUROPNT ---
Date of Procedure 07/26/24 Pre Op Diagnosis Symptomatic cholelithiasis with history of common bile duct stone Post Op Diagnosis Same Procedure Laparoscopic cholecystectomy Findings Patient was found to have a noninflamed gallbladder with tiny stones. She also was found to have adhesions in the abdomen near the umbilicus due to previous section Procedure Description After endotracheal anesthesia was given the patient was placed in supine position and the abdomen was prepped with chloroprep solution and draped in a sterile manner. After time out was performed I injected a few cc of of half percent Marcaine with epinephrine below the umbilicus and I made an incision for about 3 cm in length. The fascia was cleaned and Veress needle was inserted to create a pneumoperitoneum up to 15 mmHg. Then introduced a 12 mm trocar and a 10 mm camera through the fascia and I inspected the intra-abdominal organs as well as the gallbladder and the liver. Another 5 mm trocar was inserted in the epigastric region under direct vision after injecting some local anesthesia. At this time the patient was kept in reverse Trendelenburg position with the left lateral tilt. There were adhesions in the lower abdomen through which my initial trocar went but there were no evidence of bleeding. The third 5 mm trocar was inserted over the mid axillary line under direct vision and a Lul and Getatiana grasper was used to hold the fundus of the gallbladder. The retraction was carried out by the secretary administrative assistant moving the fundus of the gallbladder towards the right shoulder of the patient to create enough traction. I placed a another 5 mm trocar in the midaxillary line just lateral to the rectus muscle under direct vision. I used a fenestrated grasper to retract the neck of the gallbladder laterally towards the patient's right hip. The Calot's triangle was exposed and I achieved the critical view of safety as follows: I dissected out the fatty tissue from the hepatocystic triangle and cleared this area. I also dissected inferior and posterior to the gallbladder to identify the cystic duct and the gallbladder wall. Then superiorly I dissected along the cystic plate up to lower one third third of the gallbladder to lift the gallbladder from the liver. At this time I confirmed that only 2 structures entering the gallbladder were cystic artery and the cystic duct. The common duct was seen distally but no dissection was carried out around the duct. I did not see any need for operative cholangiogram in this patient. The cystic duct was clipped doubly and then divided and cystic artery was similarly dealt with. Then the gallbladder was removed from the liver bed using Harmonic pepito to control the small blood vessels as the dissection proceeded. Then the gallbladder was from the liver bed completely and delivered through the umbilical port using an Endopouch. The liver bed was coagulated with cautery to obtain satisfactory hemostasis. I looked into the pelvis at the site of the initial trocar and I found the adhesions due to previous . Using harmonic pepito I removed adhesions and looked at the area for any bowel involvement in the adhesions. The uterus was found to be almost stuck to the anterior abdominal wall from the 4 sections. The trocars were pulled out from the abdominal cavity and the fascia at the umbilical incision was closed with interrupted 0 Ethibond. Subcutaneous tissues was closed with 3-0 chromic and injected a few cc of half percent Marcaine with epinephrine and the skin was closed with interrupted 4-0 Monocryl subcuticular stitches at all the trocar sites. Dressing was applied with 2 x 2 and Tegaderm. Patient tolerated the procedure well and returned to recovery room in stable condition. Pathology / specimen Other (Gallbladder and this stones) IVF Infused 800 Estimated Blood Loss 50 Condition Stable Disposition PACU Surgeon Alexis Lott MD Surgical Staff Operation Date: 07/26/24 08:00 Case Staff CHILD NEUROLOGIST: Bola Ambrose RN First Assistant: Luciana Handley
[2024-07-26] MEDS: ONDANSETRON INJ 2 MG/ML INJ 2 ML 4 MG IV (10:15)
[2024-07-26] MEDS: METOCLOPRAMIDE INJ 5 MG/ML VIAL 2 ML 10 MG IVP (10:25)
--- NOTE | 2024-07-26 10:30 | SUR.PHASEII ---
pt able to tolerate oral fluids without difficulty swallowing or nausea/vomiting.
--- NOTE | 2024-07-26 11:15 | SUR.PHASEII ---
pt awake and alert, breathing unlabored on room air. v/s stable. pt dressing to abd x4 cdi. pt able to ambulate to wheelchair with steady gait. d/c instructions given with mother in room, all questions answered. pt d/c via wheelchair with all belongings.
== END 2024-07-26 11:15 | disposition home or self-care (01) ==
PROVIDERS: PCP Family Medicine; Referring Provider Surgery; Visit Provider Surgery
PROC: 0FT44ZZ Resection of Gallbladder, Percutaneous Endoscopic Approach (ICD-10-PCS; CPT 47562; principal; 2024-07-26 08:00)
DX: K80.10 Calculus of gallbladder with chronic cholecystitis without obstruction (principal)
CPT/HCPCS: 47562; 36415; 80053; 85025; 85610; 85730; A4217; A4649; J1100; J2250; J2405; J2704; J2765; J3010; J3490; J7120; A9270

== ENCOUNTER 2025-01-13 09:41 | Emergency (ER) | payer MEDICAID, SELFPAY ==
[2025-01-13 09:41] VITALS: BMI 25.4
[2025-01-13 09:48] VITALS: BP 130/72; PULSE 74; RESP 19; TEMP 36.7; O2SAT 100
--- NOTE | 2025-01-13 09:54 | XR_ITS ---
Examination: Pelvic ultrasound, transabdominal, complete Technique: Transabdominal ultrasound of the pelvis performed using grayscale imaging Date and time of exam: January 13, 2025 1012 hours INDICATIONS: Right pelvic pain and nausea beginning 3 days ago. FINDINGS: Uterus 9.9 cm endometrial stripe 1.4 cm No uterine mass or intrauterine gestation Right ovary 2.1 cm arterial flow small follicles Left ovary 2.4 cm arterial flow IMPRESSION: Negative examination
--- NOTE | 2025-01-13 09:55 | EDNOTE_ITS ---
ED Back Injury Pain RME/HPI General Chief Complaint: Back Pain/Injury Stated Complaint: R) LOWER BACK PAIN RADIATING TO R) GROIN Time Seen by Provider: 01/13/25 09:57 Source: patient Arrival date/time: 01/13/25 09:41 34-year-old female with no known medical history presents to the emergency room with a chief complaint of right lower back pain that radiates to her right groin x 2 days Mode of arrival: ambulatory Limitations: no limitations Related Data Previous Rx's ?Medication ?Instructions ?Recorded nitrofurantoin 100 mg PO Q12H 5 days #10 ca ps 01/13/25 monohydrate/macrocrystals 100 mg capsule (Macrobid) Allergies Allergy/AdvReac Type Severity Reaction Status Date / Time No Known Drug Allergies Allergy Verified 01/13/25 09:43 Review of Systems Review of Systems Systems Reviewed: All systems reviewed, normal except as documented Constitutional Constitutional: Reports system reviewed and no additional complaints, except as documented, Denies fatigue, Denies fever(s), Denies headache(s) and Denies weakness Eyes Eyes: Reports system reviewed and no additional complaints, except as documented, Denies blurry vision and Denies change in vision ENT Ears, Nose, Mouth, and Throat: Reports system reviewed and no additional complaints, except as documented, Denies otalgia, Denies headache(s), Denies nasal congestion, Denies throat swelling and Denies vertigo Cardiovascular Cardiovascular: Reports system reviewed and no additional complaints, except as documented, Denies chest pain, Denies dyspnea and Denies dyspnea on exertion Respiratory Respiratory: Reports system reviewed and no additional complaints, except as documented, Denies chest congestion, Denies cough, Denies dyspnea, Denies dyspnea on exertion and Denies wheezing Gastrointestinal Gastrointestinal: Reports system reviewed and no additional complaints, except as documented, Reports abdominal pain, Reports cramping, Denies nausea and Denies vomiting Genitourinary Genitourinary: Reports system reviewed and no additional complaints, except as documented Musculoskeletal Musculoskeletal: Reports system reviewed and no additional complaints, except as documented and Reports back pain Integumentary/Breasts Skin/Breast: Reports system reviewed and no additional complaints, except as documented and Denies wounds Neurologic Neurologic: Reports system reviewed and no additional complaints, except as documented, Denies confusion, Denies headache(s), Denies lack of coordination, Denies vertigo and Denies weakness Psychiatric Psychiatric: Reports system reviewed and no additional complaints, except as documented, Denies anxiety, Denies confusion, Denies depression, Denies paranoia, Denies suicidal ideation and Denies tactile hallucinations Endocrine Endocrine: Reports system reviewed and no additional complaints, except as documented and Denies fatigue Hematologic/Lymphatic Hematologic/Lymphatic: Reports system reviewed and no additional complaints, except as documented and Denies lymphadenopathy Allergic/Immunologic Allergic/Immunologic: Reports system reviewed and no additional complaints, except as documented, Denies throat swelling, Denies urticaria and Denies wheez ing Past Medical History Past Medical History NEUROLOGIC: Negative Neurological Disorders or Seizures CARDIAC: Negative Cardiac Disorders or Congestive Heart Failure RESPIRATORY: Negative Chronic Obstructive Pulmonary Disease (COPD) GASTROINTESTINAL: Positive Gastrointestinal Disorders and Gall Bladder Disease; Negative Hepatitis or Colorectal Cancer GENITOURINARY: Negative Genitourinary Disorders, Renal Disease or Prostate Cancer REPRODUCTIVE: Positive Previous Pregnancies (4); Negative Breast Cancer or Testicular Cancer MUSCULOSKELETAL: Negative Musculoskeletal Disorders or Bone Cancer ENDOCRINE: Negative Endocrine Disorders, Diabetes Mellitus Type 1 or Diabetes Mellitus Type 2 HEMATOLOGIC: Negative Blood Disorders OTHER HISTORY: Negative Hospitalization, Autoimmune Disease, Down Syndrome, Developmental Delay, Shingles, Falls, Blood Transfusions, Blood Transfusion Reaction, Anesthesia Reactions, Organ Transplant, Chemotherapy, Radiation Therapy, Hyperbaric Therapy, MRSA, VRSA, Vancomycin-Resistant Enterococci, Human Immunodeficiency Virus (HIV), Chicken Pox, Measles, Mumps, Rubella (Czech Measles), Pertussis, Clostridium Difficile, Cancer, Breast Cancer, Cervical Cancer, Colorectal Cancer, Lung Cancer, Ovarian Cancer, Prostate Cancer or Testicular Cancer Family History FAMILY HISTORY: Negative Family Psychiatric Problems, Family Respiratory Disorders, Family Cardiac Disorders, Family Gastrointestinal Problems, Family Cancer, Family Surgery or Family Anesthesia Reaction Surgical History SURGICAL: Positive Tubal Ligation and Section (4); Negative Cardiac Surgery, Endocrine Surgery, Ear Surgery, Abdominal Surgery, Nephrectomy, Joint Replacement, Neurologic Surgery or Organ Transplant Social History SMOKING STATUS: Never smoker SECOND HAND EXPOSURE: No ED Exam General Limitations: Present no limitations General appearance: Present alert and in no apparent distress Head Head exam: Present atraumatic Eye Eye exam: Present normal appearance, PERRL and EOMI ENT ENT exam: Present normal exam, normal oropharynx and mucous membranes moist Neck Neck exam: Present normal inspection, full ROM and trachea midline Chest Chest inspection: Present normal inspection and symmetric chest wall rise Respiratory Respiratory exam: Present normal lung sounds bilaterally Cardiovascular Cardiovascular exam: Present regular rate, normal rhythm and normal heart sounds Abdominal Exam Abdominal exam: Present soft, tenderness and normal bowel sounds Abdominal tenderness: Present RLQ, suprapubic and mild Extremities Exam Extremities exam: Present normal inspection and full ROM Back Exam Back exam: Present normal inspection, full ROM and sciatic notch tenderness (R) Neurological Exam Neurological exam: Present alert, oriented X3 and CN II-XII intact Psychiatric Psychiatric exam: Present normal affect and normal mood Skin Skin exam: Present warm, dry, intact and normal color Course Quality Measures none Orders Category Date Time Status US pelvic complete Stat Exams 01/13/25 09:54 Completed CBC Stat Lab 01/13/25 09:57 Completed CMP [Comprehensive Metabolic Panel] Stat Lab 01/13/25 09:57 Completed Lipase Stat Lab 01/13/25 09:57 Completed UA, C/S IF [Urinalysis, C/S if Indicated] Stat Lab 01/13/25 10:20 Completed Urine Culture Stat Lab 01/13/25 10:20 Received HYDROcodone*/APAP 5/325 [[place] 5/325] Med 01/13/25 11:35 Discontinued 1 tab PO X1 ONE Vital Signs Vital signs: Vital Signs Temperature 98.1 F 01/13/25 09:48 Pulse Rate 74 01/13/25 09:48 Respiratory Rate 19 01/13/25 09:48 Blood Pressure 130/72 01/13/25 09:48 Pulse Oximetry (%) 100 01/13/25 09:48 Oxygen Delivery Method Room Air 01/13/25 09:48 Back Pain / Injury MDM Narrative MDM Narrative:: 34-year-old female with no known medical history presents to the emergency room with a chief complaint of right lower back pain that radiates to her right groin x 2 days Patient is hemodynamically stable and in no apparent distress. She is afebrile not tachycardic not tachypneic Physical examination shows some tenderness to her right lower back and groin area x 2 days. Ultrasound was completed and was negative for any acute findings CBC CMP were within normal limits. Urinalysis showed a urinary tract infection. Antibiotics were sent to patient's pharmacy Patient was discharged and educated to follow-up with primary care provider in the next 24 to 48 hours and return to the emergency room for any evidence of worsening signs or symptoms Patient data External records reviewed:: [facility] previous records Clinical information provided by:: patient Social determinants that could affect healthcare access:: none Patient has the following chronic illnesses:: No chronic illness How is presenting disease/condition affected by chronic disease/condition?: no chronic disease Evaluation data The following diagnostics were reviewed and interpreted by me:: lab results and radiology exam(s) Lab and/or radiology exams considered but not ordered:: Labs and radiology exams considered and ordered Interpretation Summary: Pelvic ultrasound-FINDINGS: Uterus 9.9 cm endometrial stripe 1.4 cm No uterine mass or intrauterine gestation Right ovary 2.1 cm arterial flow small follicles Left ovary 2.4 cm arterial flow IMPRESSION: Negative examination Medications / Prescriptions Medications or Prescriptions considered but not ordered:: No medication given Medication administrations:: Medication Administration History Discontinued Medications Hydrocodone Bitart/Acetaminophen (Hydrocodone/Apap 5/325 Tablet) 1 tab PO X1 ONE Stop: 01/13/25 11:36 Last Admin: 01/13/25 11:47 Dose: 1 tab Documented By: OA No medication given Consultations Consultation(s) initiated? (list below): No Diagnosis Differential diagnosis back pain/injury: sciatica, strain of lumbar region and discitis Most likely diagnosis given after review of the tests above:: Urinary tract infection Admission Indicated Admission indicated?: not indicated Admission Request Was there a request for admission?: No Disposition Plan Disposition Plan: Discharge Discharge Attestation Discharge Attestation: The patient and all family members were given an opportunity to ask questions and understood the discharge instructions. Discharge instructions specifically effects, indications for sooner follow up or return to the emergency department, and the expected course of current diagnosis. Patient condition: Stable Discharge Plan Plan Patient Disposition: HOME (Self Care) Discharge Disposition comment: Stable Prescriptions/Referrals Prescriptions/Med Rec: New nitrofurantoin monohyd/m-cryst [Macrobid] 100 mg capsule 100 mg PO Q12H 5 Days Qty: 10 0RF Rx Instructions: must administer with a meal/food Referrals: No Primary/Family,Physician [Primary Care Provider] - In 1 week Problem List Clinical Impression: Urinary tract infection Patient/Caregiver Discharge Instructions Education Materials: ED CYSTITIS Female Adult Additional Instructions: Please follow-up with your primary care provider in the next 24 to 48 hours Your blood work ultrasound were all within normal limits. Your urinalysis did show a urinary tract infection. Antibiotics are sent to your pharmacy please pick them up and take them as indicated For any evidence of worsening signs or symptoms return emergency room immediately Print Language: Malaysian Stand Alone Forms: [employer] Award Info., Work/School Release, Patient Portal Info Letter PA/PRODUCT DEVELOPMENT INTERN Supervising Physician PA/PRODUCT DEVELOPMENT INTERN Supervising Physician: Dr. Deluca
[2025-01-13 10:36] LABS: Basophils # (Auto) 0.0 Thou/mm3 (0.0-0.2); Basophils % (Auto) 0 % (0-2.5); Eosinophils # (Auto) 0.0 Thou/mm3 (0.0-0.5); Eosinophils % (Auto) 0 % (0-10); Hematocrit 36.9 % (36.0-46.0); Hemoglobin 12.8 g/dL (12.0-16.0); Immature Granulocytes Auto 0.03 Thou/mm3 (0.00-0.00); Lymphocytes # (Auto) 1.8 Thou/mm3 (1.0-4.8); Lymphocytes % (Auto) 19 % (10-50); Mean Corpuscular HGB Conc 34.7 g/dl (31.0-37.0); Mean Corpuscular Hemoglobin 29.6 pg (25.0-35.0); Mean Corpuscular Volume 85 fL (80-100); Monocytes # (Auto) 0.5 Thou/mm3 (0.0-0.8); Monocytes % (Auto) 5 % (0-12); Neutrophils # (Auto) 7.0 Thou/mm3 (1.8-7.7); Neutrophils % (Auto) 75 % (37-80); Nucleated Red Blood Cell # 0.00 Thou/mm3 (0.00-0.00); Nucleated Red Blood Cell % 0 /100 WBC (0); Platelet Count 317 Thou/mm3 (140-440); RDW Standard Deviation 41.6 fL (36.4-46.3); Red Blood Count 4.33 Miln/mm3 (4.00-5.20); White Blood Count 9.4 Thou/mm3 (3.6-11.0)
[2025-01-13 10:41] LABS: Collection Type, Urine Clean Catch
[2025-01-13 10:54] LABS: Alanine Aminotransferase < 7 U/L (10-49); Albumin, Serum 3.9 gm/dL (3.5-5.0); Albumin/Globulin Ratio 1.3 (1.2-2.2); Alkaline Phosphatase 62 U/L (46-116); Anion Gap 11 (7-16); Aspartate Amino Transferase 12 U/L (0-34); BUN/Creatinine Ratio 14 Ratio (12-20); Bilirubin,Total 0.5 mg/dL (0.3-1.2); Blood Urea Nitrogen 11 mg/dL (9-23); Calcium 9.1 mg/dL (8.3-10.6); Calcium (Corrected) 9.2 mg/dL (8.5-10.1); Carbon Dioxide 23.2 mMol/L (20.0-31.0); Chloride 108 mMol/L (98-107); Creatinine (Component) 0.8 mg/dL (0.6-1.3); Estimated Creatinine Clearance 76.3 mL/min (>60); Globulin 2.9 gm/dL (2.3-3.5); Glucose 95 mg/dL (74-106); Lipase 35 U/L (12-53); Osmolality,Calculated 282 (275-295); Potassium 3.8 mMol/L (3.4-5.1); Sodium 142 mMol/L (136-145); Total Protein 6.8 gm/dL (5.7-8.2); eGFR > 60 See Note
[2025-01-13 11:19] LABS: Bacteria,Urine Rare; Bilirubin,Urine Negative (Negative); Blood,Urine 3+ (Negative); Calcium Oxalate Crystals,Urine 2+; Clarity,Urine Turbid (Clear/Hazy); Color,Urine Yellow (Lt Yel-Yel); Glucose, Urine Negative (Negative); Ketones,Urine Negative (Negative); Leukocyte Esterase,Urine Positive (Negative); Nitrite,Urine Negative (Negative); PH,Urine 5.5 (5.0-7.0); Protein,Urine 1+ (Neg - Trace); RBC,Urine 130 /hpf (0-3); Specific Gravity,Urine 1.039 (1.001-1.035); Squamous Epithelial Cell,Urine 9 /hpf (0-5); Urobilinogen,Urine 2.0 mg/dL (0.0-1.0); WBC,Urine 18 /hpf (0-5)
[2025-01-13 11:45] LABS: Culture Indicated,Urine Yes
[2025-01-13] MEDS: HYDROcodone/APAP 5/325 TABLET 1 TAB PO (11:47)
== END 2025-01-13 12:06 | disposition home or self-care (01) ==
PROVIDERS: Emergency Provider Nurse Practitioner Family
DX: N39.0 Urinary tract infection, site not specified (principal); R10.2 Pelvic and perineal pain; R11.0 Nausea
CPT/HCPCS: 36415; 76856; 80053; 81001; 83690; 85025; 87086; 99283; A9270